=== PATIENT | female | born 1980 | race Caucasian/White ===

== ENCOUNTER 2017-12-17 01:43 | Emergency (ER) | payer OTHER ==
[~2017-12-17] VITALS: Ht 157.5 cm; Wt 63.5 kg
[~2017-12-17 01:43] MED LIST: ADVAIR DISKUS 21 DSK PO; BLM PO; BUSPIRONE HCL10 MG PO; CATAPRES 0.1MG0.1 MG PO; CITALOPRAM HYDR10 MG PO; FOLIC ACID 1 MG PO; MOBIC 15MG15 MG PO; NAPROSYN500 M1 PO; NATURE'S BLEND F1 MG PO; NEXIUM20 M1 PO; NORCO 325 MG-51 TAB PO; ORPHENADRINE C100 MG PO; PERCOCET 325 MG1 TA2 PO; PROAIR HFA0.09 MG/Ac PO; QUETIAPINE FUMA50 MG PO; SUBOXONE 8 MG-21 TAB SL; SUMATRIPTAN SUC50 MG PO; TRAMADOL HCL50 M1 PO; VITAMIN B-121000 MC3 PO
[2017-12-17] MEDS ORDERED: AMOXICILLIN500 M3 PO (03:46)
[2017-12-17] MEDS ORDERED: IBUPROFEN600 M1 PO (03:46)
[2017-12-17] MEDS ORDERED: NORCO 5-325 TA1 EACH PO (03:46)
--- NOTE | 2017-12-17 03:48 | ED THROAT/DENTAL COMPLAINT ---
History of Present Illness General Chief Complaint: Sore Throat, Dental Pain Stated Complaint: DENTAL BROKEN TOOTH RADIATING DOWN ARM PER PT Source: patient, old records Exam Limitations: no limitations Vital Signs & Intake/Output Vital Signs & Intake/Output Vital Signs Date Time Temp Pulse Resp B/P B/P Pulse O2 O2 Flow FiO2 Mean Ox Delivery Rate 12/17 0210 97.6 80 18 150/82 98 Room Air Allergies Coded Allergies: codeine (MOTHER IS ALLERGIC 12/17/17) Reconcile Medications Albuterol Sulfate (Proair Hfa) 0.09 MG/Actuation ABNER 2 PUF PO Q4-6 PRN PRN BREATHING PROBLEMS (Reported) Cyanocobalamin (Vitamin B-12) 1,000 MCG TABLET 1,000 MCG PO DAILY VITAMIN SUPPORT Esomeprazole Magnesium (Nexium) 20 MG CAPSULE.DR 20 MG PO DAILY ACID REFLUX ( Reported) Naproxen (Naprosyn) 500 MG TABLET 1 TAB PO BID PRN BACK PAIN Orphenadrine Citrate 100 MG TABLET.ER 1 TAB PO BID PRN MUSCLE PAIN/SPASMS Tramadol HCl 50 MG TABLET 1 TAB PO Q6P PRN BACK PAIN Triage Note: TRIAGE: PATIENT TO ER FROM HOME REPORTING BROKEN TOOTH TO TOP AND BOTTOM OF R SIDE MOUTH AND L SIDE UPPER, SINCE 3PM TODAY "EVERY HALF HOUR HAVE PAINFUL SPELLS 10/10 W/ PAIN SHOOTING FROM CHEEK INTO NECK AND INTO HEAD." HOLDING HAND UP TO R SIDE FACE. Triage Nurses Notes Reviewed? yes Onset: Afternoon Duration: hour(s):, constant, continues in ED, getting worse Timing: recent history Injury Environment: home Severity: severe Modifying Factors: Worsens With: eating. LMP (ages 10-50): unknown : No Patient currently breastfeeds: No HPI: Several hours prior to admission patient complains of fracture right upper molar that is causing severe pain radiating to ear and arm it is worse with eating and cold. She denies fever chills nausea vomiting diarrhea abdominal pain chest pain shortness breath headache dysuria rash bleeding Past History Travel History Traveled to [place] past 21 day No Medical History Any Pertinent Medical History? see below for history Neurological: migraine EENT: NONE Cardiovascular: NONE Respiratory: asthma Gastrointestinal: GERD Hepatic: NONE Renal: NONE Musculoskeletal: NONE Psychiatric: anxiety, depression Endocrine: NONE Blood Disorders: NONE Cancer(s): NONE NURSE PRACTITIONER PHYSICIAN ASSISTANT/Reproductive: NONE Other Medical Hx: Patient's only medications currently are Nexium and Motrin. Surgical History Surgical History: non-contributory Psychosocial History What is your primary language Cuban Tobacco Use: Current Daily Use Daily Tobacco Use Amount/Type: => 5 Cigarettes daily Family History Hx Contributory? No Review of Systems Review of Systems Constitutional: Reports: no symptoms. EENTM: Reports: see HPI, tooth pain. Respiratory: Reports: no symptoms. Cardiovascular: Reports: no symptoms. GI: Reports: no symptoms. Genitourinary: Reports: no symptoms. Musculoskeletal: Reports: no symptoms. Skin: Reports: no symptoms. Neurological/Psychological: Reports: no symptoms. Hematologic/Endocrine: Reports: no symptoms. Immunologic/Allergic: Reports: no symptoms. All Other Systems: Reviewed and Negative Physical Exam Physical Exam General Appearance: well developed/nourished, alert, awake, anxious, mild distress Head: atraumatic, normal appearance Eyes: Bilateral: normal appearance, PERRL, EOMI. Ears: Bilateral: canal normal, Tympanic normal. 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 No Sepsis Present: No Sepsis Focused Exam Completed? No Progress Differential Diagnosis: carious tooth, odontogenic abscess Plan of Care: Current Medications Sig/Dileep Start time Last Medication Dose Stop Time Status Admin Amoxicillin 500 MG ONCE ONE 12/17 344 UNVr (Amoxil) 12/17 345 Hydrocodone Bitart/ 1 TAB ONCE ONE 12/17 344 UNVr Acetaminophen 12/17 345 (Vicodin) Departure Departure Time of Disposition: 344 Disposition: HOME OR SELF CARE Condition: Stable Clinical Impression Primary Impression: Tooth fracture Referrals: Hilda العلي,Varsha Houser (PCP/Family) Departure Forms: Customer Survey General Discharge Information Prescriptions: Current Visit Scripts Amoxicillin 1 TAB PO TID #30 TAB Hydrocodone/Acetaminophen ([place] 5-325 Tablet) 1-2 TAB PO Q4-6 PRN PRN severe pain #15 TAB Ibuprofen 1 TAB PO Q6P PRN pain #50 TAB with food ED Attending Observation Initial Observation Note: I have seen and personally examined DESIRAE DAIGLE on 12/17/17 at 0344. I agree with the current emergency department documentation. The disposition (admission or discharge) is uncertain at this time, she needs a period of observation for the following reason(s): The ED Nurse caring for this patient has been personally informed as to what the patient is being observed for.
[2017-12-17 03:57] VITALS: BP 138/80
== END 2017-12-17 03:58 ==
LOC: ERH 01:43
DX: S02.5XXA Fracture of tooth (traumatic), initial encounter for closed fracture (principal); X58.XXXA Exposure to other specified factors, initial encounter